=== PATIENT | male | born 1955 | race Caucasian/White ===

== ENCOUNTER 2019-10-23 02:36 | Emergency (ER) | payer SELFPAY ==
[2019-10-23] MEDS ORDERED: Fluorescein Opthalmic Strip ONE (02:52)
[2019-10-23] MEDS ORDERED: Tetracaine 0.5% OPHTH SOLN/PF 4 ML BOT ONE (02:52)
[2019-10-23] MEDS ORDERED: Erythromycin Base 0.5% Ophth Oint 3.5 gm Tube ONE (02:52)
[2019-10-23] MEDS ORDERED: Ibuprofen 800 MG TAB ONE (03:15)
[2019-10-23] MEDS ORDERED: HYDROcodone/Acetaminophen 5/325 mg Tablet ONE (03:15)
== END 2019-10-23 03:18 | disposition home or self-care (01) ==
LOC: BURERS 02:36
DX: H16.133 Photokeratitis, bilateral (principal); E11.9 Type 2 diabetes mellitus without complications; F32.9 Major depressive disorder, single episode, unspecified; F43.10 Post-traumatic stress disorder, unspecified; Z79.84 Long term (current) use of oral hypoglycemic drugs; Z79.899 Other long term (current) drug therapy
CPT/HCPCS: 99283